=== PATIENT | female | born 1970 | race Caucasian/White ===

== ENCOUNTER → 2021-03-24 | Outpatient (CLI) | payer OTHER ==
[~2021-03-24] VITALS: Ht 152.4 cm; Wt 72.6 kg
[~2021-03-24] MED LIST: LEVOTHYROXINE150 MC1 PO; LEXAPRO20 MG PO; PROTONIX40 M2 PO
--- NOTE | ~2021-03-24 | O ---
Formerly [facility] [place] [address] OPERATIVE REPORT Name: SYDNIE CRUZ Room #: [facility]#: [id number] Admission: 03/24/21 Attend Phys: Isaiah Gtz Discharge: Date of : 72 Report #: [id number] THIS REPORT FOR: cc: Sandy Cat MD, Genelle J. MD McElhinney, Christian C. MD ~ cc: Sandy Cat DATE OF SERVICE: 03/24/2021 DATE OF PROCEDURE: 03/24/2021 PROCEDURE PERFORMED: Colonoscopy. HISTORY OF PRESENT ILLNESS: The patient is a 50-year-old female who presents today for routine screening colonoscopy. She denies any symptoms at this time. No family history of colon cancer or inflammatory bowel disease. DESCRIPTION OF PROCEDURE: The risks and benefits of the procedure were explained to the patient, those risks including but not limited to bleeding, perforation and the risk of sedation. She understood these risks and gave informed consent. Sedation was given using propofol per anesthesia. Next, a digital rectal exam was initially performed, which was normal. Next, using a standard Olympus colonoscope, the scope was placed in the patient's anus and advanced under direct vision to the cecum. The overall prep was excellent. The cecum and ileocecal valve were normal in appearance. Ascending, transverse, descending and sigmoid colon were all normal. The rectal mucosa was normal. On retroflexion, small nonbleeding internal hemorrhoids were noted. Scope was then withdrawn and the procedure terminated. The patient tolerated the procedure well. IMPRESSION: Small internal hemorrhoid. No evidence of bleeding, otherwise normal colonoscopy. RECOMMENDATIONS: Repeat colonoscopy in 10 years. Thank you for allowing me to participate in her care. By: [id number] Isaiah Polk MD /nt
== END | disposition home or self-care (01) ==
LOC: GI 08:33
PROVIDERS: ATTEND Specialist
DX: Z12.11 Encounter for screening for malignant neoplasm of colon (principal); K64.8 Other hemorrhoids; E03.9 Hypothyroidism, unspecified; Z98.890 Other specified postprocedural states; Z79.899 Other long term (current) drug therapy; Z87.891 Personal history of nicotine dependence; Z98.84 Bariatric surgery status
CPT/HCPCS: 62110; 62900